=== PATIENT | male | born 1970 | race Hispanic/Latino ===

== ENCOUNTER 2017-09-07 18:52 | Emergency (ER) | payer OTHER ==
[2017-09-07] MEDS ORDERED: LIDOCAINE HCL 1% 20 ML VIAL ONE (19:09)
[2017-09-07] MEDS ORDERED: CEFAZOLIN SODIUM 1 GM VIAL ONE (19:44)
== END 2017-09-07 20:42 | disposition home or self-care (01) ==
LOC: EDH 18:52
DX: S62.660B Nondisplaced fracture of distal phalanx of right index finger, initial encounter for open fracture (principal); X58.XXXA Exposure to other specified factors, initial encounter; Y93.89 Activity, other specified; Y92.89 Other specified places as the place of occurrence of the external cause; Y99.8 Other external cause status
CPT/HCPCS: 64450; 73140; 96365; 99284; J0690